=== PATIENT | female | born 1995 | race Caucasian/White ===

== ENCOUNTER 2024-06-23 20:09 | Inpatient (IN) | payer OTHER ==
[~2024-06-23] VITALS: Ht 167.6 cm; Wt 135.4 kg
[2024-06-23 20:20] VITALS: BP 118/68
[2024-06-23] MEDS ORDERED: WEGOVY2.4 MG/0.7 SQ (20:35)
[2024-06-23] MEDS ORDERED: IOHEXOL 300 MG/ML 100 ML VIAL IV ONE (20:50)
[2024-06-23 20:59] LABS: BILIRUBIN Negative (Negative); BLOOD 2+ (Negative); CLARITY Clear (Clear); COLOR Yellow (Yellow); GLUCOSE Negative (Negative); KETONE Negative (Negative); LEUKO ESTERASE Negative (Negative); NITRITE Negative (Negative); PH 5.5 (4.5-8.0); SPECIFIC GRAVITY >= 1.030 (1.001-1.030); UROBILINOGEN 0.2 E.U./dl (0.0-1.0)
[2024-06-23 21:05] LABS: BASO # 0.1 10*3/uL (0.0-0.1); BASO % 0.8 % (0.0-1.0); EOS # 0.3 10*3/uL (0.0-0.4); EOS % 2.7 % (1.0-4.0); MEAN CELL VOLUME 87.1 fl (81.0-99.0); MEAN CORPUSCULAR HGB 27.9 pg (27.0-31.0); MONO # 0.9 10*3/uL (0.1-1.0); MONO % 9.1 % (3.0-9.0); NEUT # 5.2 10*3/uL (2.3-7.9); NEUT % 52.2 % (47.0-73.0); PLATELET COUNT AUTOMATED 386 10*3/uL (130-400); RED BLOOD COUNT 4.59 10*6/uL (4.10-5.10); RED CELL DISTRI WIDTH 13.1 % (0-14.5)
[2024-06-23 21:28] LABS: ALKALINE PHOSPHATASE 55 U/L (46-116); BUN 16 mg/dl (9-23); CHLORIDE 103 mmol/L (98-107); LIPASE 36 U/L (12-53); POTASSIUM 3.6 mmol/L (3.4-5.1); SGPT/ALT 11 U/L (5-49); TOTAL PROTEIN 7.5 gm/dL (6.0-8.0)
[2024-06-23 21:46] LABS: EPITHELIAL CELLS 21-30; WBC 0-2 wbc/hpf (0-5)
[2024-06-23] MEDS ORDERED: SODIUM CHLORIDE 0.9% 1,000 ML IV ONE (23:05)
[2024-06-23] MEDS ORDERED: Piperacillin Sodium/Tazobact 50 ML IV ONE (23:05)
[2024-06-23 23:58] VITALS: BP 116/61
[2024-06-24] VITALS (8 sets, daily range): BP systolic 103–120; BP diastolic 50–80
[2024-06-24] MEDS ORDERED: Magnesium Hydroxide 30 ML UDC PO PRN (00:15)
[2024-06-24] MEDS ORDERED: ACETAMINOPHEN 325 MG TAB PO PRN (00:20)
[2024-06-24] MEDS ORDERED: Ondansetron Hydrochloride 4 MG/2 ML VIAL IV PRN (00:20)
[2024-06-24] MEDS ORDERED: BISACODYL 5 MG TAB PO PRN (00:20)
[2024-06-24] MEDS ORDERED: ACETAMINOPHEN 650 MG SUPP R PRN (00:20)
[2024-06-24] MEDS ORDERED: TEMAZEPAM 15 MG CAP PO PRN (00:20)
[2024-06-24] MEDS ORDERED: BISACODYL 10 MG SUPP R PRN (00:20)
[2024-06-24] MEDS ORDERED: MORPHINE Sulfate 2 MG/ML SYR IV PRN (00:20)
[2024-06-24] MEDS ORDERED: SODIUM CHLORIDE 0.9% 1,000 ML IV ONE ×2 (00:30→06:30)
[2024-06-24] MEDS ORDERED: Pantoprazole Sodium 40 MG VIAL IV SCH (06:00)
[2024-06-24] MEDS ORDERED: Piperacillin Sodium/Tazobact 50 ML IV SCH (06:00)
[2024-06-24] MEDS ORDERED: Lactated Ringer's Solution 1,000 ML IV ONE (09:33)
[2024-06-24] MEDS ORDERED: BUPivacaine 0.5% 30 ML IV ONE (09:33)
[2024-06-24] MEDS ORDERED: PERCOCET 5-3251 EACH PO (09:40)
[2024-06-24] MEDS ORDERED: fentaNYL CITRATE 100 MCG/2 ML VIAL IV ONE (11:01)
[2024-06-24] MEDS ORDERED: Succinylcholine Chloride 200 MG/10 ML SYRINGE IV ONE (11:01)
[2024-06-24] MEDS ORDERED: ROCURONIUM BROMIDE 50 MG/5 ML SYRINGE IV ONE (11:01)
[2024-06-24] MEDS ORDERED: Ondansetron Hydrochloride 4 MG/2 ML VIAL IV ONE (11:01)
[2024-06-24] MEDS ORDERED: MIDAZOLAM HCL IN 0.9 % NACL/PF 50 MG/50 ML PLAST..BAG IV ONE (11:01)
[2024-06-24] MEDS ORDERED: SUGAMMADEX SODIUM 200 MG/2 ML VIAL IV ONE (11:01)
[2024-06-24] MEDS ORDERED: SEVOFLURANE 250 ML BOT INH ONE (11:01)
[2024-06-24] MEDS ORDERED: PROPOFOL 200 MG/20 ML VIAL IV ONE (11:01)
[2024-06-24] MEDS ORDERED: Dexamethasone Sodium Phospha 4 MG/ML VIAL IV ONE (11:01)
[2024-06-24] MEDS ORDERED: Ketorolac Tromethamine 30 MG/ML VIAL IV ONE (11:01)
[2024-06-24] MEDS ORDERED: Lidocaine Hydrochloride 2% 5 ML SDV IV ONE (11:01)
[2024-06-24] MEDS ORDERED: WEGOVY2.4 MG/0.7 SQ (13:57)
== END 2024-06-24 16:44 | disposition home or self-care (01) | DRG 398 ==
LOC: ED 20:09 → EDHOLD 23:15 → 5E 23:15
PROVIDERS: Physician Assistant Medical; ADMIT Internal Medicine; ATTEND Internal Medicine
PROC: 0DTJ4ZZ Resection of Appendix, Percutaneous Endoscopic Approach (ICD-10-PCS; principal; 2024-06-24)
DX: K35.80 Unspecified acute appendicitis (principal); Z68.42 Body mass index [BMI] 45.0-49.9, adult; J45.909 Unspecified asthma, uncomplicated; R31.9 Hematuria, unspecified; E66.01 Morbid (severe) obesity due to excess calories; K08.409 Partial loss of teeth, unspecified cause, unspecified class; Z87.891 Personal history of nicotine dependence; Z88.8 Allergy status to other drugs, medicaments and biological substances; Z91.09 Other allergy status, other than to drugs and biological substances; Z79.899 Other long term (current) drug therapy; Z79.2 Long term (current) use of antibiotics